=== PATIENT | female | born 1980 | race Caucasian/White ===

== ENCOUNTER → 2018-06-17 | Outpatient (CLI) | payer OTHER ==
[~2018-06-17] MED LIST: IBUP800 PO; OXYACE5T PO
== END | disposition home or self-care (01) ==
LOC: LAB SHORT 07:39 → PLD 07:39
DX: D23.62 Other benign neoplasm of skin of left upper limb, including shoulder (principal)
CPT/HCPCS: 88305

== ENCOUNTER 2018-11-27 21:56 | Emergency (ER) | payer OTHER ==
[~2018-11-27] VITALS: Ht 157.5 cm; Wt 55.8 kg
[2018-11-27 22:54] LABS: BASOPHILS ABSOLUTE AUTO 0.04 K/mm3 (0.00-0.23); BASOPHILS PERCENT AUTO 1 % (0-2); EOSINOPHILS PERCENT AUTO 1 % (0-6); Hematocrit 42.9 % (33.0-51.0); IMMATURE GRAN ABSOLUTE AUTO 0.02 K/mm3 (0.00-0.10); IMMATURE GRAN PERCENT AUTO 0 % (0-1); LYMPHOCYTES ABSOLUTE AUTO 2.17 K/mm3 (0.84-5.20); LYMPHOCYTES PERCENT AUTO 28 % (21-46); MONOCYTES ABSOLUTE AUTO 0.46 K/mm3 (0.16-1.47); MONOCYTES PERCENT AUTO 6 % (4-13); Mean Corpuscular HGB 30.4 pg (26.0-34.0); Mean Corpuscular HGB Conc 32.6 g/dL (31.5-36.5); Mean Corpuscular Volume 93 fL (80-100); Mean Platelet Volume 10.9 fL (9.1-12.4); NEUTROPHILS ABSOLUTE AUTO 4.98 K/mm3 (1.96-9.15); NEUTROPHILS PERCENT AUTO 64 % (41-73); Platelet Count 234 K/mm3 (150-400); RDW Coefficient Variation 11.8 % (11.7-14.2); RDW Standard Deviation 40.4 fL (35.1-46.3); Red Blood Cell Count 4.61 M/mm3 (3.80-5.20); White Blood Cell Count 7.77 K/mm3 (4.00-11.30)
[2018-11-27 23:14] LABS: Alanine Aminotransfer (ALT/SGP 22 U/L (12-78); Albumin, Blood 3.9 g/dL (3.4-5.0); Albumin/Globulin Ratio 1.1 (0.8-1.8); Alk Phos 86 U/L (50-136); Anion Gap 6 mmol/L (6-16); Aspartate Aminotrans (AST/SGOT 20 U/L (12-37); Bilirubin, Total 0.2 mg/dL (0.1-1.0); Blood Urea Nitrogen 9 mg/dL (8-24); Bun/Creatinine Ratio 12.2 (12.0-20.0); CO2, Blood 30 mmol/L (21-32); Calcium, Blood 8.6 mg/dL (8.5-10.1); Chloride, Blood 104 mmol/L (98-108); Creatinine, Blood 0.74 mg/dL (0.40-1.00); Globulin, Blood 3.5 g/dL (2.2-4.0); Glomerular Filtration Rate >60 (60-); Glucose, Blood 88 mg/dL (70-99); Potassium, Blood 3.7 mmol/L (3.5-5.5); Sodium, Blood 140 mmol/L (136-145); Total Protein, Blood 7.4 g/dL (6.4-8.2); Troponin I <0.015 ng/mL (0.000-0.040)
== END 2018-11-28 02:39 | disposition home or self-care (01) ==
LOC: ER 21:56
PROVIDERS: Physician Assistant
DX: R07.89 Other chest pain (principal); R91.1 Solitary pulmonary nodule; I82.622 Acute embolism and thrombosis of deep veins of left upper extremity; Z88.2 Allergy status to sulfonamides; Z88.1 Allergy status to other antibiotic agents; Z88.8 Allergy status to other drugs, medicaments and biological substances
CPT/HCPCS: 36415; 71260; 80053; 84484; 85025; 93005; 93010; 99284-25; Q9967

== ENCOUNTER 2019-07-10 07:00 | Day surgery (SDC) | payer OTHER ==
[~2019-07-10] VITALS: Ht 157.5 cm; Wt 54.8 kg
[~2019-07-10 07:00] MED LIST changes: +ALBU2.5V5 INH; +BREO ELLIPTA 21 EACH INH; +ESCI10 PO; +EUTHYROX112 MCG PO; +Fiorinal Capsu1 EACH PO; +GABA300 PO; +LIOT5 PO; +MONT10T PO; +OMEP20ER PO; +TRAM50 PO; +XARELTO20 MG PO; +ZOLP10 PO
--- NOTE | 2019-07-10 08:26 | NUR ---
07/10/19 0826 Jeannie Ibarra ORSC.KNM LOWER PREP ORSC.JAR UPPER PREP
--- NOTE | 2019-07-10 10:11 | NUR ---
07/10/19 Johnathan1 Regina Kaiser PT TRANSFERRED INTO THE RECLINER WITH STAND BY ASSIT FROM RN. PT COMPLAINED OF PAIN 09/19; RN TREATED WITH IV PAIN MEDICATION PER 'S ORDERS. VSS. PT ACCOMPANIED BY HER MOTHER IN LAW. SNACKS AND PO FLUIDS PROVIDED. CALL LIGHT IN REACH. PT DENIES NAUSEA.
== END 2019-07-10 11:12 | disposition home or self-care (01) ==
LOC: ORSCSDS 07:00
PROVIDERS: Obstetrics & Gynecology
PROC: 0U5B8ZZ Destruction of Endometrium, Via Natural or Artificial Opening Endoscopic (ICD-10-PCS; principal; 2019-07-10 09:00)
PROC: 0UPD7HZ Removal of Contraceptive Device from Uterus and Cervix, Via Natural or Artificial Opening (ICD-10-PCS; principal; 2019-07-10 09:00)
PROC: 0UT74ZZ Resection of Bilateral Fallopian Tubes, Percutaneous Endoscopic Approach (ICD-10-PCS; principal; 2019-07-10 09:00)
PROC: 0U914ZZ Drainage of Left Ovary, Percutaneous Endoscopic Approach (ICD-10-PCS; principal; 2019-07-10 09:00)
DX: Z30.2 Encounter for sterilization (principal); N92.0 Excessive and frequent menstruation with regular cycle; N94.6 Dysmenorrhea, unspecified; N71.9 Inflammatory disease of uterus, unspecified; N83.202 Unspecified ovarian cyst, left side; Z30.432 Encounter for removal of intrauterine contraceptive device; J45.909 Unspecified asthma, uncomplicated; E78.5 Hyperlipidemia, unspecified; K21.9 Gastro-esophageal reflux disease without esophagitis; Z79.899 Other long term (current) drug therapy
CPT/HCPCS: 88302; 88305; J0171; J0690; J1100; J1885; J2001; J2250; J2370; J2405; J2704; J3010; J7120

== ENCOUNTER → 2021-02-07 | Outpatient (CLI) | payer OTHER | END | disposition home or self-care (01) | LOC: LAB 10:04 → LAB SHORT 10:04 | DX: R19.4 Change in bowel habit (principal) | CPT/HCPCS: 87338 ==

== ENCOUNTER → 2021-11-02 | Outpatient (CLI) | payer OTHER ==
[2021-11-02 19:24] LABS: BASOPHILS ABSOLUTE AUTO 0.05 K/mm3 (0.00-0.23); BASOPHILS PERCENT AUTO 1 % (0-2); EOSINOPHILS ABSOLUTE AUTO 0.04 K/mm3 (0.00-0.68); EOSINOPHILS PERCENT AUTO 1 % (0-6); Hematocrit 45.7 % (33.0-51.0); Hemoglobin 15.2 g/dL (11.5-16.0); IMMATURE GRAN ABSOLUTE AUTO 0.02 K/mm3 (0.00-0.10); IMMATURE GRAN PERCENT AUTO 0 % (0-1); LYMPHOCYTES ABSOLUTE AUTO 1.72 K/mm3 (0.84-5.20); LYMPHOCYTES PERCENT AUTO 23 % (21-46); MONOCYTES ABSOLUTE AUTO 0.51 K/mm3 (0.16-1.47); MONOCYTES PERCENT AUTO 7 % (4-13); Mean Corpuscular HGB 29.3 pg (26.0-34.0); Mean Corpuscular HGB Conc 33.3 g/dL (31.5-36.5); Mean Corpuscular Volume 88 fL (80-100); Mean Platelet Volume 10.7 fL (9.1-12.4); NEUTROPHILS ABSOLUTE AUTO 5.31 K/mm3 (1.96-9.15); NEUTROPHILS PERCENT AUTO 69 % (41-73); Platelet Count 280 K/mm3 (150-400); RDW Coefficient Variation 12.2 % (11.7-14.2); RDW Standard Deviation 39.8 fL (35.1-46.3); Red Blood Cell Count 5.19 M/mm3 (3.80-5.20); White Blood Cell Count 7.65 K/mm3 (4.00-11.30)
[2021-11-02 19:39] LABS: Albumin, Blood 3.5 g/dL (3.4-5.0); Albumin/Globulin Ratio 1.1 (0.8-1.8); Bilirubin, Total 0.2 mg/dL (0.1-1.0); C-REACTIVE PROTEIN, EXT RANGE 0.414 mg/dL (0.000-0.300); Calcium, Blood 8.8 mg/dL (8.5-10.1); Creatinine, Blood 0.71 mg/dL (0.40-1.00); Globulin, Blood 3.3 g/dL (2.2-4.0); Potassium, Blood 3.6 mmol/L (3.5-5.5); Total Protein, Blood 6.8 g/dL (6.4-8.2)
== END | disposition home or self-care (01) ==
LOC: LAB 17:15 → LAB SHORT 17:15
PROVIDERS: Nurse Practitioner Family
DX: M54.2 Cervicalgia (principal); R51.9 Headache, unspecified
CPT/HCPCS: 80053; 84145; 85025; 86140

== ENCOUNTER → 2022-04-12 | Outpatient (CLI) | payer OTHER ==
[2022-04-12 17:54] LABS: BASOPHILS ABSOLUTE AUTO 0.05 K/mm3 (0.00-0.23); BASOPHILS PERCENT AUTO 1 % (0-2); EOSINOPHILS ABSOLUTE AUTO 0.06 K/mm3 (0.00-0.68); EOSINOPHILS PERCENT AUTO 1 % (0-6); Hematocrit 41.5 % (33.0-51.0); Hemoglobin 14.2 g/dL (11.5-16.0); IMMATURE GRAN ABSOLUTE AUTO 0.02 K/mm3 (0.00-0.10); IMMATURE GRAN PERCENT AUTO 0 % (0-1); LYMPHOCYTES ABSOLUTE AUTO 1.82 K/mm3 (0.84-5.20); LYMPHOCYTES PERCENT AUTO 32 % (21-46); MONOCYTES ABSOLUTE AUTO 0.38 K/mm3 (0.16-1.47); MONOCYTES PERCENT AUTO 7 % (4-13); Mean Corpuscular HGB 30.2 pg (26.0-34.0); Mean Corpuscular HGB Conc 34.2 g/dL (31.5-36.5); Mean Corpuscular Volume 88 fL (80-100); Mean Platelet Volume 10.4 fL (9.1-12.4); NEUTROPHILS PERCENT AUTO 59 % (41-73); Platelet Count 281 K/mm3 (150-400); RDW Coefficient Variation 12.3 % (11.7-14.2); White Blood Cell Count 5.73 K/mm3 (4.00-11.30)
== END | disposition home or self-care (01) ==
LOC: LAB 15:45 → LAB SHORT 15:45
PROVIDERS: Family Medicine
DX: R06.00 Dyspnea, unspecified (principal)
CPT/HCPCS: 85025

== ENCOUNTER 2023-01-20 12:09 | Emergency (ER) | payer BC ==
[~2023-01-20] VITALS: Ht 157.5 cm; Wt 74.4 kg
[2023-01-20 13:04] VITALS: BP 131/88
[2023-01-20 13:29] LABS: BASOPHILS ABSOLUTE AUTO 0.05 K/mm3 (0.00-0.23); BASOPHILS PERCENT AUTO 1 % (0-2); EOSINOPHILS PERCENT AUTO 1 % (0-6); Hematocrit 44.7 % (33.0-51.0); Hemoglobin 15.2 g/dL (11.5-16.0); IMMATURE GRAN ABSOLUTE AUTO 0.08 K/mm3 (0.00-0.10); IMMATURE GRAN PERCENT AUTO 1 % (0-1); LYMPHOCYTES ABSOLUTE AUTO 1.57 K/mm3 (0.84-5.20); LYMPHOCYTES PERCENT AUTO 21 % (21-46); MONOCYTES ABSOLUTE AUTO 0.57 K/mm3 (0.16-1.47); MONOCYTES PERCENT AUTO 8 % (4-13); Mean Corpuscular Volume 88 fL (80-100); Mean Platelet Volume 9.5 fL (9.1-12.4); NEUTROPHILS ABSOLUTE AUTO 5.28 K/mm3 (1.96-9.15); NEUTROPHILS PERCENT AUTO 69 % (41-73); Platelet Count 216 K/mm3 (150-400); RDW Coefficient Variation 12.4 % (11.7-14.2); RDW Standard Deviation 40.2 fL (35.1-46.3); Red Blood Cell Count 5.07 M/mm3 (3.80-5.20); White Blood Cell Count 7.65 K/mm3 (4.00-11.30)
[2023-01-20 13:41] LABS: Source, Urine Clean Catch
[2023-01-20 13:47] LABS: Albumin, Blood 3.4 g/dL (3.4-5.0); Bilirubin, Total 0.3 mg/dL (0.1-1.0); Bun/Creatinine Ratio 6.5 (12.0-20.0); Calcium, Blood 8.7 mg/dL (8.5-10.1); Creatinine, Blood 0.77 mg/dL (0.40-1.00); Globulin, Blood 3.5 g/dL (2.2-4.0); Potassium, Blood 3.4 mmol/L (3.5-5.5); Total Protein, Blood 6.9 g/dL (6.4-8.2)
[2023-01-20 13:49] LABS: Appearance, Urine Clear (Clear); Bilirubin, Urine Neg (Neg); Blood, Urine Neg (Neg); Color, Urine Yellow (P-Yellow); Glucose Qualitative, Urine Neg (Neg); Ketones, Urine Neg (Neg); Leukocyte Esterase, Urine Neg (Neg); Nitrite, Urine Neg (Neg); Protein, Urine 1+ (Neg); Urobilinogen, Urine NORM (Normal)
[2023-01-20] MEDS ORDERED: ONDA4ODT MM (17:53)
== END 2023-01-20 18:27 | disposition home or self-care (01) ==
LOC: ER 12:09
PROVIDERS: Student in an Organized Health Care Education/Training Program
DX: R10.11 Right upper quadrant pain (principal); R11.0 Nausea; J45.909 Unspecified asthma, uncomplicated; K21.9 Gastro-esophageal reflux disease without esophagitis; E06.3 Autoimmune thyroiditis; Z88.2 Allergy status to sulfonamides; Z88.8 Allergy status to other drugs, medicaments and biological substances; Z86.718 Personal history of other venous thrombosis and embolism; Z79.01 Long term (current) use of anticoagulants; Z79.82 Long term (current) use of aspirin; Z79.899 Other long term (current) drug therapy
CPT/HCPCS: 74177; 80053; 81025; 82140; 83690; 85025; 93005; 93010; 99284-25; Q9967

== ENCOUNTER → 2023-03-28 | Outpatient (CLI) | payer BC ==
[~2023-03-28] MED LIST changes: +ONDA4ODT MM
== END ==
LOC: LAB SHORT 15:33 → LAB 15:33
DX: E03.9 Hypothyroidism, unspecified (principal)
CPT/HCPCS: 84443